=== PATIENT | male | born 1935 | race Caucasian/White ===

== ENCOUNTER 2016-08-23 17:21 | Emergency (ER) | payer MEDICARE, BC ==
[2016-08-23 17:53] VITALS: RESP 20; TEMP 98.6
[2016-08-23 17:53] LABS: APPEARANCE,URINE Clear; BILIRUBIN,URINE NEGATIVE (NEGATIVE); COLOR,URINE Yellow; GLUCOSE, URINE (UA) NEGATIVE (NEGATIVE); KETONES,URINE NEGATIVE (NEGATIVE); LEUKOCYTE ESTERASE ,URINE NEGATIVE (NEGATIVE); NITRATE,URINE NEGATIVE (NEGATIVE); OCCULT BLOOD,URINE NEGATIVE (NEG-TRACE); PH,URINE 5.5; UROBILINOGEN,URINE 0.2 (0.2-1.0 EU)
[2016-08-23 18:05] LABS: RBC,URINE 0-1 (0-3AV/HPF); WBC,URINE 0-1 (0-5AV/HPF)
[2016-08-23] MEDS ORDERED: TAMSULOSIN HYDROCHLORIDE 0.4 MG CAP ONE (19:14)
[2016-08-23] MEDS ORDERED: SULFAMETHOXAZOLE/TRIMETHOPRI 800/160 MG ONE (19:14)
[2016-08-23] MEDS ORDERED: TAMSULOSIN HYDROCHLORIDE 0.4 MG CAP PO SCH (19:15)
[2016-08-23] MEDS ORDERED: SULFAMETHOXAZOLE/TRIMETHOPRI 800/160 MG PO ONE (19:15)
[2016-08-23 19:21] VITALS: BP 143/80; PULSE 62; O2SAT 94
== END 2016-08-23 19:19 | disposition home or self-care (01) | DRG 696 ==
LOC: ED 17:21
DX: R30.0 Dysuria (principal)
CPT/HCPCS: 81001; 99283

== ENCOUNTER 2016-10-01 07:54 | Day surgery (SDC) | payer MEDICARE, BC ==
[~2016-10-01 07:54] MED LIST: LIDOCAINE HCL 1% MPF SOL ONE; PROPOFOL 500 MG/50 ML EMU IV ONE
[2016-10-01 10:07] VITALS: RESP 18; TEMP 97.6; O2SAT 94
[2016-10-01 10:16] VITALS: BP 118/64; PULSE 78
== END 2016-10-01 10:25 | disposition home or self-care (01) | DRG 951 ==
LOC: SURG 07:54
PROVIDERS: ATTEND Surgery
DX: Z12.11 Encounter for screening for malignant neoplasm of colon (principal); K57.30 Diverticulosis of large intestine without perforation or abscess without bleeding; Z86.010 Personal history of colon polyps; K62.1 Rectal polyp
CPT/HCPCS: 93005; J2001; J2704

== ENCOUNTER 2018-04-30 10:09 | Emergency (ER) | payer MEDICARE, BC ==
[2018-04-30 10:28] VITALS: BP 147/85; PULSE 72; RESP 18; TEMP 97.5; O2SAT 97
== END 2018-04-30 12:39 | disposition home or self-care (01) | DRG 392 ==
LOC: ED 10:09
DX: K59.00 Constipation, unspecified (principal)
CPT/HCPCS: 74019; 99283

== ENCOUNTER 2018-08-06 12:49 | Emergency (ER) | payer MEDICARE, BC ==
[2018-08-06 13:02] VITALS: RESP 20; TEMP 96.1
[2018-08-06 13:16] VITALS: BP 154/91; PULSE 58; O2SAT 96
[2018-08-06] MEDS ORDERED: SODIUM CHLORIDE 0.9% 1000ML 1,000 ML IV SCH (13:30)
[2018-08-06 13:44] LABS: BASOPHILS % (AUTO) 1 % (0-3); EOSINOPHILS % (AUTO) 2 % (0-9); HEMATOCRIT 44 % (39-53); HEMOGLOBIN 14.1 gm/dl (13.5-17.7); LYMPHOCYTES % (AUTO) 12.4 % (10-50); MEAN CORPUSCULAR HEMOGLOBIN 29.5 pg (27.0-32.0); MEAN CORPUSCULAR HGB CONC 31.9 gm/dl (32.0-36.0); MEAN CORPUSCULAR VOLUME 93 fL (80-100); MONOCYTES % (AUTO) 8.3 % (0-12)
[2018-08-06 13:58] LABS: ALKALINE PHOSPHATASE 67 IU/L (46-116); ALT 27 IU/L (14-63); AST 24 IU/L (15-37); BILIRUBIN,TOTAL 0.4 mg/dl (0.2-1.0); BLOOD UREA NITROGEN 26 mg/dl (7-18); CALCIUM 8.7 mg/dl (8.5-10.1); CARBON DIOXIDE 26.4 mEq/L (21-32); CHLORIDE 105 mMol/L (98-107); CREATININE 1.36 mg/dl (0.80-1.30); GLUCOSE 99 mg/dl (74-106); POTASSIUM 4.9 mMol/L (3.5-5.1); SODIUM 137 mMol/L (136-145); TOTAL PROTEIN 6.6 gm/dl (6.4-8.2); TROP I < 0.017 ng/ml (0.000-0.056)
[2018-08-06] MEDS ORDERED: ONDANSETRON HCL 4 MG/2 ML SOL IV ONE (14:43)
[2018-08-06] MEDS ORDERED: ONDANSETRON HCL 4 MG/2 ML SOL ONE (14:49)
== END 2018-08-06 16:08 | disposition home or self-care (01) | DRG 392 ==
LOC: ED 12:49
DX: K29.00 Acute gastritis without bleeding (principal); R11.2 Nausea with vomiting, unspecified
CPT/HCPCS: 36415; 80053; 83880; 84484; 85025; 93005; 96365; 96366; 96374; 99283; 99284; J2405